=== PATIENT | male | born 1945 | race Caucasian/White ===

== ENCOUNTER → 2018-06-17 08:09 | Outpatient (CLI) | payer MEDICARE, OTHER ==
--- NOTE | 2018-06-23 14:26 | EC ---
PATIENT:ROSLYN KEBEDE DATE OF SERVICE: 06/17/18 SEX: M MEDICAL RECORD: [id number] DATE OF : [birth year] [facility] AGE OF PATIENT: 72 ADMISSION DATE: 06/17/18 REFERRING PHYSICIAN: INTERPRETING PHYSICIAN: NAVEEN HI MD ECHOCARDIOGRAM REPORT ECHO CHARGES 4 ECHO COMPLETE Date: 06/17/18 CLINICAL DIAGNOSIS: H/O A-FIB/HTN ECHOCARDIOGRAPHIC MEASUREMENTS (adult normal given) AC root (d.<3.7cm) 3.6 cm LV Septum d (<1.2 cm> 1.1 cm Valve Excursion 2.5 cm LV Septum (systole) 2.0 cm Left Atria (s.<4.0cm> 4.4 cm LVPW d(<1.2cm) 1.2 cm RV (d.<2.3cm) 2.8 cm LVPW (sytole) 1.9 cm LV diastole(<5.6CM) 5.4 cm MV E-F(>70mm/sec) cm LV systole 3.1 cm LVOT Diameter 2.2 cm MV exc.(>10mm) cm Est.ejection fraction (50-75%) % DOPPLER: LVIT cm/sec A 44.0 cm/sec E 58.0 cm/sec LA cm/sec RVSP 31.4 mmHg LVOT 92.0 cm/sec AOP1/2T m/s Asc. Ao 105 cm/sec RVOT 48.0 cm/sec RA cm/sec PA 85.0 cm/sec AV Gradient Peak 4.4 mmHg AV Mean 2.2 mmHg AV Area 2.6 cm MV Gradient Peak 2.8 mmHg MV Mean 0.77 mmHg MV Area cm COMMENTS: OP - HC Iron Pellet Tester: 1 ADAM ANIYA Global Sales Manager: 3 Dr. Evans TAPE# PACS Pericardial Effusion N DATE OF SERVICE: 06/17/2018 Adequate 2-D, color-flow and spectral Doppler, and M-mode. Borderline LVH. LV internal dimensions are normal. Wall motion is normal. EF is greater than or equal to 55%. Aortic valve is tricuspid. No evidence of stenosis by Doppler interrogation. Left atrium is dilated at 4.4 cm. Mitral valve is thickened. Trace MR. Right-sided chambers are grossly normal. Mild TR. ECHOCARDIOGRAM REPORT [id number] ROSLYN KEBEDE TRANSINT:[id number] Voice Confirmation ID: [id number] DOCUMENT ID: [id number] NAVEEN HI MD at 1426 CC: [id number] DICTATION DATE: 06/18/18 141 HIV/AIDS CARE NURSE: 06/18/18 1422 DEP CLI 06/17/18 [place] [id number] [place] [id number]
== END | disposition home or self-care (01) ==
LOC: D.HCCARDIO 08:09
PROVIDERS: ATTEND Internal Medicine Interventional Cardiology
DX: I48.91 Unspecified atrial fibrillation (principal)

== ENCOUNTER → 2019-06-29 08:16 | Outpatient (CLI) | payer MEDICARE, OTHER ==
--- NOTE | 2019-07-02 08:58 | EC ---
PATIENT:ROSLYN KEBEDE DATE OF SERVICE: 06/29/19 SEX: M MEDICAL RECORD: [id number] DATE OF : 43 LOCATION:D.[facility] AGE OF PATIENT: 74 ADMISSION DATE: 06/29/19 REFERRING PHYSICIAN: INTERPRETING PHYSICIAN: NAVEEN HI MD ECHOCARDIOGRAM REPORT ECHO CHARGES 4 ECHO COMPLETE Date: 06/29/19 CLINICAL DIAGNOSIS: HTN HX OF AFIB/MR/TR ECHOCARDIOGRAPHIC MEASUREMENTS (adult normal given) AC root (d.<3.7cm) 4.2 cm LV Septum d (<1.2 cm> 1.5 cm Valve Excursion 2.2 cm LV Septum (systole) 2.0 cm Left Atria (s.<4.0cm> 4.4 cm LVPW d(<1.2cm) 1.5 cm RV (d.<2.3cm) 2.1 cm LVPW (sytole) 1.7 cm LV diastole(<5.6CM) 4.4 cm MV E-F(>70mm/sec) cm LV systole 2.9 cm LVOT Diameter cm MV exc.(>10mm) 1.8 cm Est.ejection fraction (50-75%) % DOPPLER: LVIT cm/sec A 88.0 cm/sec E 71.0 cm/sec LA cm/sec RVSP 33 mmHg LVOT 81 cm/sec AOP1/2T m/s Asc. Ao 95 cm/sec RVOT 55 cm/sec RA cm/sec PA 117 cm/sec AV Gradient Peak 3.61 mmHg AV Mean 1.97 mmHg AV Area 3.3 cm MV Gradient Peak 2.98 mmHg MV Mean 0.93 mmHg MV Area cm COMMENTS: Marketing Executive: 2 ALONSO BHAGAT Special Systems Technician: 3 Dr. Evans TAPE# PACS Pericardial Effusion N DATE OF SERVICE: Adequate 2D, color flow imaging, spectral Doppler, and M-Mode LVH is present. LV internal dimension is normal. Wall motion is normal. EF is greater than or equal to 55%. Aortic valve is tricuspid. No evidence of stenosis by Doppler interrogation. Left atrium is mildly dilated at 4.4 cm. Mitral valve shows no prolapse. Mild MR. Right-sided chambers are grossly normal. Mild TR. ECHOCARDIOGRAM REPORT [id number] ROSLYN KEBEDE TRANSINT:[id number] Voice Confirmation ID: [id number] DOCUMENT ID: [id number] NAVEEN HI MD at 0858 CC: [id number] DICTATION DATE: 06/30/19 1328 FLIGHT MANAGER: 06/30/19 1443 DEP CLI 06/29/19 [place] [id number] [place] [id number]
== END | disposition home or self-care (01) ==
LOC: D.HCCECHO 08:16
PROVIDERS: ATTEND Internal Medicine Interventional Cardiology
DX: I10 Essential (primary) hypertension (principal)